=== PATIENT | male | born 1955 | race Caucasian/White ===

== ENCOUNTER → 2016-12-14 | Outpatient (CLI) | payer MEDICARE ==
[~2016-12-14] MED LIST: ASPIRIN325 MG PO; CILOSTAZOL100 MG PO; COMBIVENT0.074 GM/I INH; DIOVAN160 MG PO; EPIPEN 2-P0.3 MG/0.3 INJ; GLUCOPHAGE1000 MG PO; GLUCOTROL 10 MG10 MG PO; HUMALOG MI100 UNIT/4 SQ; IPRAT-ALBUT 0.5-3 ML INH; ISOSORBIDE MON120 MG PO; KLOR-CON M1010 MEQ PO; LASIX40 MG PO; LEVOTHYROXINE100 MCG PO; LYRICA150 MG PO; MECLIZINE HCL12.5 MG PO; NITRO DUR TD; NITROGLYCERIN4.9 GM SL; PLAVIX 75 MG TA75 MG PO; PROTONIX40 MG PO; RANEXA1000 MG PO; TOPROL XL100 MG PO; ZYRTEC10 M3 PO
== END ==
LOC: HEART 5 08:06
DX: I25.118 Atherosclerotic heart disease of native coronary artery with other forms of angina pectoris (principal); I25.2 Old myocardial infarction; I51.9 Heart disease, unspecified
CPT/HCPCS: 78452; 93306; A9502; J2785